=== PATIENT | female | born 1990 | race Two or more races ===

== ENCOUNTER 2019-11-06 17:38 | Emergency (ER) | payer MEDICAID ==
[~2019-11-06] VITALS: Ht 167.6 cm; Wt 72.6 kg
[~2019-11-06 17:38] MED LIST: BENADRYL50 MG ORAL; ELIMITE 5% CREA60 GM TOPIC; NKM; PREDNISONE20 M1 PO
--- NOTE | 2019-11-06 17:38 | NUR ---
ED Nurse Note: Patient walked in to ER from home c/o body ache, fever. AAO x4, VSS at this time.
[2019-11-06 17:40] VITALS: BP 123/76
--- NOTE | 2019-11-06 18:03 | Emergency Room Report ---
History of Present Illness General Chief Complaint: Pain Source: Patient Present Illness HPI 29-year-old female with no signal past medical history here complaining of 2 days of generalized body ache, fever and chills. Denies any sore throat, shortness of breath, chest pain, cough and congestion. Sitting comfortably see vital signs. Has not taken medication for symptom relief. Reports that has been staying at home for the past several weeks. Denies any recent travel. Denies . Denies abdominal pain, nausea vomiting diarrhea. Allergies: Coded Allergies: No Known Allergies (Unverified , 10/03/14) COVID-19 Screening Contact w/high risk pt: No Recent Travel to affected area: No Experienced COVID-19 symptoms?: No Patient History Past Medical History: see triage record Past Surgical History: none Pertinent Family History: none Last Menstrual Period: now Now: No Immunizations: UTD Reviewed Nursing Documentation: PMH: Agreed; PSxH: Agreed Nursing Documentation-PMH Past Medical History: No Stated History Review of Systems All Other Systems: negative except mentioned in HPI Physical Exam Vital Signs Date Time Temp Pulse Resp B/P (MAP) Pulse Ox O2 Delivery O2 Flow Rate FiO2 11/06/19 17:29 99.3 105 20 123/76 (92) 98 Room Air Sp02 EP Interpretation: reviewed, normal General Appearance: no apparent distress, alert, GCS 15, non-toxic Head: normocephalic, atraumatic Eyes: bilateral eye normal inspection, bilateral eye PERRL ENT: hearing grossly normal, normal pharynx, no angioedema, normal voice Neck: full range of motion, supple/symm/no masses Respiratory: chest non-tender, lungs clear, normal breath sounds, no rhonchi, no wheezing, speaking full sentences Cardiovascular #1: regular rate, rhythm, no edema, no murmur Gastrointestinal: normal bowel sounds, non tender, soft, non-distended, no guarding, no rebound Rectal: deferred Genitourinary: no CVA tenderness Musculoskeletal: back normal Neurologic: alert, motor strength/tone normal, oriented x3, sensory intact, responsive, speech normal Psychiatric: judgement/insight normal, memory normal, mood/affect normal, no suicidal/homicidal ideation Skin: no rash Lymphatic: no adenopathy Medical Decision Making PA Attestation All diagnoses and treatment plans were reviewed and discussed with my supervising physician Dr. Jimenez Diagnostic Impression: Primary Impression: Upper respiratory infection ER Course 29-year-old female with no signal past medical history here complaining of 2 days of generalized body ache, fever and chills. Denies any sore throat, shortness of breath, chest pain, cough and congestion. Sitting comfortably see vital signs. Has not taken medication for symptom relief. Reports that has been staying at home for the past several weeks. Denies any recent travel. Denies . Denies abdominal pain, nausea vomiting diarrhea. Ddx considered but are not limited to: Coronavirus, strep pharyngitis, URI, tonsillitis, peritonsillar abscess, influneza Vital signs: are WNL, pt. is afebrile H&PE are most consistent with: URI ORDERS: Tamiflu, Tylenol ED INTERVENTIONS: None required at this time. DISCHARGE: At this time pt. is stable for d/c to home. Will provide printed patient care instructions, and any necessary prescriptions. Care plan and follow up instructions have been discussed with the patient prior to discharge. Take medication as directed, follow-up with your primary doctor, you need to stay home for self quarantine due to Covid 19 precautions for 14 days Last Vital Signs Date Time Temp Pulse Resp B/P (MAP) Pulse Ox O2 Delivery O2 Flow Rate FiO2 11/06/19 17:29 99.3 105 20 123/76 (92) 98 Room Air Disposition: HOME, SELF-CARE Condition: Stable Scripts Oseltamivir Phosphate (Tamiflu) 75 Mg Capsule 75 MG ORAL TWICE A DAY for 5 Days, #10 CAP Prov: Jorge Huff 11/06/19 Acetaminophen* (TYLENOL EXTRA STRENGTH*) 500 Mg Tablet 500 MG ORAL Q8H PRN for Prn Headache/Temp > 101, #30 TAB 0 Refills Prov: Jorge Huff 11/06/19 Patient Instructions: Upper Respiratory Infection, Adult, [id number] Additional Instructions: Take medication as directed, follow-up with your primary doctor, you need to stay home for self quarantine due to Covid 19 precautions for 14 days Jorge Huff Nov 06, 2019 18:03
[2019-11-06] MEDS ORDERED: TYLENOL EXTRA500 MG ORAL (18:06)
[2019-11-06] MEDS ORDERED: TAMIFLU75 MG ORAL (18:06)
--- NOTE | 2019-11-06 19:07 | NUR ---
ED Nurse Note: Pt cleared by health care Provider for discharge. DC instructions/prescription was given and explained to pt and verbalized understanding of teachings. All medical deviecs such as ID band removed. Pt is AAO x4, ambulatory and left with all personal belongings.
== END 2019-11-06 18:52 | disposition home or self-care (01) ==
LOC: EDBD 17:38 → EMR 17:40
DX: J06.9 Acute upper respiratory infection, unspecified (principal)
CPT/HCPCS: 99282